=== PATIENT | male | born 1975 | race Caucasian/White ===

== ENCOUNTER 2024-04-13 17:54 | Emergency (ER) | payer SELFPAY ==
[2024-04-13 18:12] VITALS: BP 144/95; PULSE 66; RESP 16; TEMP 36.2; O2SAT 100
--- NOTE | 2024-04-13 18:15 | ED.EYEPROB ---
HPI - Eye Problem General Chief complaint: Eye Problems Stated complaint: LT Eye Pain Time Seen by Provider: 04/13/24 18:15 Source: patient, RN notes reviewed and old records reviewed Mode of arrival: ambulatory Limitations: no limitations History of Present Illness HPI Narrative: 49-year-old male presents to the [facility] with left eye discomfort, redness and swelling. Patient states that the symptoms started Tuesday, 5 days ago. Denies any trauma to the eye. No hyphema. Denies pain currently. Denies any blurry vision. States that he has had clear tearing with no purulent discharge. Patient is PERRLA Treatments Prior to Arrival: irrigated eye and OTC eye drops Related Data Home Medications Medication Instructions Recorded Confirmed citalopram 20 mg tablet 20 mg PO DAILY 04/13/24 04/13/24 Allergies Allergy/AdvReac Type Severity Reaction Status Date / Time No Known Allergies Allergy Verified 04/13/24 18:05 Review of Systems Review of Systems: All systems reviewed & are unremarkable except as noted in HPI and below Constitutional: Constitutional: Reports no additional constitutional complaints Eyes: Eyes: Reports as per HPI, Reports eye discharge (clear), Reports irritation, Denies loss of vision and Reports eye pain (Intermittent) ENT: Reports system reviewed and no additional complaints, except as documented Cardiovascular: Cardiovascular: Reports no additional cardiovascular complaints, Denies chest pain and Denies dyspnea Respiratory: Respiratory: Reports no additional respiratory complaints, Denies chest congestion, Denies cough and Denies dyspnea Gastrointestinal: Gastrointestinal: Reports no additional gastrointestinal complaints, Denies abdominal pain, Denies nausea and Denies vomiting Musculoskeletal: Musculoskeletal: Reports no additional musculoskeletal complaints Integumentary/Breasts: Skin/Breast: Reports system reviewed and no additional complaints, except as docu Neurologic: Reports system reviewed and no additional complaints, except as documented Psychiatric: Psychiatric: Reports no additional psychiatric complaints Allergic/Immunologic: Allergic/Immunologic: Reports no additional allergic/immunologic complaints COUNTS INCLUDE 234 BEDS AT THE [facility] Family History Family History Sibling Patient's brother is in good health Social History Social History Smoking status: Current every day smoker Alcohol intake: current Comments At the time of my signature, I reviewed and agree with the nursing past medical, surgical, social, and family history. There is no relevant family history pertinent to the patient complaint. Exam Const: General: cooperative, healthy appearing, comfortable, no acute distress, well developed, alert and well nourished Nutritional Appearance: well nourished Orientation/consciousness: patient oriented x3 Limitations: no limitations HENMT: Head: normal to inspection Ears: hearing grossly normal bilaterally and external ears normal Face/Nose/Sinus: Normal external nose present, normal facial exam and face symmetric Face and sinus: normal facial exam and face symmetric Eyes: General: appearance normal, both eyes and all related structures Alignment and Position: alignment normal Periorbital: periorbital findings normal Eyelids: eyelids normal Conjunctivae: conjunctival abnormality left conjunctival injection circumcorneal and subconjunctival hemorrhage; without discharge and without pallor Cornea: corneas normal and fluorescein used Neck: Neck: normal visual inspection, full ROM, no lymphadenopathy and no meningeal signs Chest: Chest palpation & inspection: normal inspection of the chest Resp: Effort & Inspection: normal respiratory effort and able to speak in complete sentences Auscultation: clear to auscultation bilaterally, no crackles, no rales, no rhonchi and no wheezes Cardio:
== END 2024-04-13 19:01 | disposition home or self-care (01) ==
PROVIDERS: Emergency Provider Nurse Practitioner
DX: H10.89 Other conjunctivitis (principal); F17.200 Nicotine dependence, unspecified, uncomplicated; Z79.899 Other long term (current) drug therapy
CPT/HCPCS: 99213; G0463

== ENCOUNTER 2025-05-17 16:11 | Emergency (ER) | payer SELFPAY ==
--- OUTSIDE RECORDS SUMMARY | 2018-08-29 07:26 | XMS_ITS | Continuity of Care Document ---
Author Organization [facility] Address [address] [place] [address] Phone Care Team Providers Care Data Lead Name Role Phone Mey PT, DPT, Aric Unavailable Unavail able Procedures Procedure Date Progress Note Therapeutic Exercise Therapeutic Activities Neuromuscular Re-Ed Manual Therapy Therapeutic Exercise Therapeutic Activities Neuromuscular Re-Ed Manual Therapy Therapeutic Exercise Therapeutic Activities Neuromuscular Re-Ed Manual Therapy Therapeutic Exercise Therapeutic Activities Neuromuscular Re-Ed Manual Therapy Therapeutic Exercise Therapeutic Activities Neuromuscular Re-Ed Manual Therapy Therapeutic Exercise Therapeutic Activities Neuromuscular Re-Ed Manual Therapy Therapeutic Exercise Therapeutic Activities Neuromuscular Re-Ed Manual Therapy PT Evaluation Low Complexity Therapeutic Exercise Therapeutic Activities Manual Therapy Advance Directives Directive Yes / No Effective Date File Name No Information Encounters Encounter Description Practice Location Reason(s) For Visit Diagnoses Date Provider Providers Copied on Encounter [facility], [facility] [address], [place], [place], [id number], [place] tel:[phone] [place] No Information Aug-0 9 Mey Aric. . [facility], [place], [place], [id number], [place] tel:[phone] [place] Concussion w LOC of 30 minutes or less, subsOther abnormalities of gait and mobilityUnspec ified abnormalities of gait and mobility 9 Mey Aric. . Referring Provider: Arvin Cabral, [address] [facility] [address] [facility], [place], [address]. tel:[phone] [facility] [address], [place], [place], [id number], [place] tel:[phone] [place] Concussion w LOC of 30 minutes or less, subsOther abnormalities of gait and mobilityUnspec ified abnormalities of gait and mobility 9 Mey Aric. . Referring Provider: Frances J[address] [facility] [address] [facility], [place], [address]. tel:[phone] [facility], [place], [place], [id number], [place] tel:[phone] [place] Concussion w LOC of 30 minutes or less, subsOther abnormalities of gait and mobilityUnspec ified abnormalities of gait and mobility 9 Mey Aric. . Referring Provider: Arvin Cabral [address] [facility] [address], [place], [address]. tel:[phone] [facility], [place], [place], [address], [place] tel:[phone] [place] Concussion w LOC of 30 minutes or less, subsOther abnormalities of gait and mobilityUnspec ified abnormalities of gait and mobility 9 Mey Aric. . Referring Provider: Frances [address] [facility] [address], [place], [address]. tel:[phone] [facility] [facility] [address], [id number], tel:[phone] [place] Concussion w LOC of 30 minutes or less, subsOther abnormalities of gait and mobilityUnspec ified abnormalities of gait and mobility 9 Mey Aric. . Referring Provider: Frances [address] [address], [place], [address]. tel:[phone], [id number], tel:[phone] [place] Concussion w LOC of 30 minutes or less, subsOther abnormalities of gait and mobilityUnspec ified abnormalities of gait and mobility 9 Mey Aric. . Referring Provider: Frances [address], [address]. tel:[phone], [id number], tel:[phone] [place] Concussion w LOC of 30 minutes or less, subsOther abnormalities of gait and mobilityUnspec ified abnormalities of gait and mobility 9 Mey Aric. . Referring Provider: Frances [address] [address], [place], [address]. tel:[phone], [id number], tel:[phone] [place] Concussion w LOC of 30 minutes or less, subsOther abnormalities of gait and mobilityUnspec ified abnormalities of gait and mobility 9 Mey Aric. . Referring Provider: Ruby Jaquez N [address], [facility]. tel:[phone] Family History Family Member Type Diagnosis Age At Onset No Information Payers Payer name Insurance type Covered alliance party ID Authoriza tion(s) [employer] [facility] [id number] Social History Type Description Quantity Date Captured Comments Sex Male Smoking Status No Information Chief Complaint And Reason For Visit No Information Reason For Referral Reason For Referral No Information History Of Present Illness Encounter Date Complaint History Of Prese nt Illness No Information Functional Status Date Functional Assessmen t No Information Instructions Date Instruction Additional Infor mation No Information Assessments Type Assessment Date No Information Patient Care Teams Name Effective Dates (start - stop) Status Members No Information
--- OUTSIDE RECORDS SUMMARY | 2024-08-09 09:20 | XMS_ITS ---
Author Organization [facility] Address [address] [place] [address] Care Team Providers Care Drawing Tracer Name Role Phone Glenis Monroe Primary Care Provider REASON FOR VISIT last appt was December 2023; needs 40 min Social History Sex Assigned At : Social History Observation Description Sex Assigned At Male Encounters Encounter Location Date Provider Diagnosis [address] [place] [address] 08/09/2024 Glenis Monroe Plan Of Treatment No Information Progress Notes * Samson CARTERDOB:1974 (50 yo M)Acc No.[id number]:08/09/2024 UNLOCKED PROGRESS NOTE Patient: Samson AYALA Provider: Baldev Monroe DNP, PMHNP-BC, PARK AIDE :1975 A ge:49 Y S ex:Male Date:08/09/2024 [address] [facility] Structured Data:Is there a n bobby you would prefer we call you? (Nombre que prefiere usar) : No Subjective: * Chief Complaints: * 1 . last appt was December 2023; needs 40 min. * Medical History: Objective: * Vitals: Assessment: Plan: * Treatment: * * Electronic signature of Kiki Monroe on 05/17/2025 at 05:21 PM ORTHOTIC PRACTITIONER Sign off status: Pending * Provider: Baldev Monroe DNP, RED-BC, PARK AIDE Date: 08/09/2024 Generated for Printing/Faxing/eTransmitting on: 1 07/17/2024 05:21 PM ORTHOTIC PRACTITIONER
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
[2025-05-17 16:13] VITALS: BP 163/130; PULSE 62; RESP 16; TEMP 36.4; O2SAT 97
--- OUTSIDE RECORDS SUMMARY | 2025-05-17 16:15 | XMS_ITS | Patient Health Record ---
Author Organization [facility] Address [address] [place] [address] Care Team Providers Care International Marketing Manager Name Role Phone Glenis Monroe Primary Care Provider Eileen Rincon [phone] Allergies No Known Allergies Reason For Referral No Information Medications Medication SIG (Take, Route, Frequency, Duration) Notes Start Date End Date Status Citalopram Hydrobromide 20 MG Take 1 tablet by mouth once daily Once a day; Duration: 90 days Active buPROPion HCl ER (XL) 150 MG 1 tablet in the morning Orally Once a day; Duration: 90 days 03/18/2025 Active traZODone HCl 50 MG 1 tablet at bedtime as needed Orally Once a day; Duration: 30 days Active Citalopram Hydrobromide 10 MG 1 tablet Orally Once a day; Duration: 30 days Not-Erwin chaves Social History Tobacco Use: Social History Observation Description Date Details (start date - stop date) Never Smoker NA - NA Sex Assigned At : Social History Observation Description Sex Assigned At Male Tobacco Control (Standard) Question Answer Notes Tobacco use: Nonsmoker Problems Problem Type SNOMED Code ICD Code Onset Dates Problem Status W/U Status Risk Notes Problem Generalized anxiety disorder (82235011) REBA (generalized anxiety disorder) (F41.1) Active confirmed Problem Bipolar 2 disorder (29132157) Bipolar 2 disorder (F31.81) Active confirmed Problem Overweight (941362813) Over weight (E66.3) Active confirmed Problem Poor concentration (finding) (56807155) Concentration deficit (R41.840) Active confirmed Vital Signs Heart Rate 88 /min 03/18/2025 Temperature 98 degrees Fahrenheit 03/18/2025 Respiratory Rate 18 /min 03/18/2025 Oximetry 98 % 03/18/2025 Blood pressure diastolic 74 mm Hg 03/18/2025 Height 5ft 8in in 03/18/2025 Blood pressure systolic 126 mm Hg 03/18/2025 Weight 204 lb 2 oz lbs 03/18/2025 BMI 31.03 kg/m2 03/18/2025 Encounters Encounter Location Date Provider Diagnosis [address] [place] [address] 08/08/2024 Eileen Rincon REBA (generalized anxiety disorder) F41.1 and Bipolar 2 disorder F31.[address] [place] [address] 03/18/2025 Eileen Rincon Over weight E66.3 ; REBA (generalized anxiety disorder) F41.1 ; Bipolar 2 disorder F31.81 and Concentration deficit R41.[address] [address] 02/06/2025 Glenis Monroe Assessments Encounter Date Diagnosis (ICD Code) Assessment Notes Treatment Notes Treatment Clinical Notes Section Notes 08/08/2024 REBA (generalized anxiety disorder) (ICD-10 - F41.1) 08/08/2024 Bipolar 2 disorder (ICD-10 - F31.81) 03/18/2025 Over weight (ICD-10 - E66.3) 03/18/2025 REBA (generalized anxiety disorder) (ICD-10 - F41.1) 03/18/2025 Bipolar 2 disorder (ICD-10 - F31.81) 03/18/2025 Concentration deficit (ICD-10 - R41.840) Plan Of Treatment No Information Medical (General) History Medical History History ICD Code HX HTN Surgical History Surgery Date(Month/Year) 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 Hospitalization History Reason Date(Month/Year) 2023
--- OUTSIDE RECORDS SUMMARY | 2025-05-17 16:15 | XMS_ITS | Clinical Summary ---
Author Organization [facility] Address [address] [place] [address] Care Team Providers Care Popcorn Machine Operator Name Role Phone None, Provider Primary Care Provider Unavaila ble Social History Tobacco Use Types Packs/Day Years Used Date Smoking Tobacco: Never Assessed Sex and Gender Information Value Date Recorded Sex Assigned at Not on file Legal Sex Male 4:23 PM CDT Gender Identity Not on file Sexual Orientation Not on file Plan of Treatment Health Maintenance Due Date Last Done Comments Colorectal Cancer Screening Colonoscopy (10 Years) 1977 Annual Physical 1980 Hepatitis C 1995 DTaP, Tdap and Td Vaccines ( 1 - Tdap) 1996 Hepatitis B Vaccines (1 of 3 - 19+ 3-dose series) 1996 COVID-19 Vaccine ( - 2024-2 6 season) 2025 Influenza Adult (#1) 2025 Hepatitis A Vaccines Aged Out No long er eligible based on patient's age to complete this topic Meningococcal B Vaccine Aged Out No l onger eligible based on patient's age to complete this topic Meningococcal Vaccine Aged Out No urmila ken eligible based on patient's age to complete this topic Pneumococcal Vaccine: Pediat rics (0 to 5 Years) and At-Risk Patients (6 to 49 Years) Aged Out No longer eligible b ased on patient's age to complete this topic RSV Immunizations Under 20 Months Aged Out No longer eligible based on patient's age to complete this topic Additional Health Concerns Infection Onset Date Last Indicated MRSA 07/17/2018 07/17/2018 Care Teams Popcorn Machine Operator Relationship Specialty Start Date End Date None, ProviderMD PCP - General 06/16/18
--- OUTSIDE RECORDS SUMMARY | 2025-05-17 16:15 | XMS_ITS | Data Portability ---
Author Organization [facility] Independent Space [facility], [facility] Address [address] [place] [address] Care Team Providers Care Lead Manufacturing Engineering Tech Name Role Phone VERONICA JORGE Suede Cleaner [phone] Assessment No assessment recorded. Plan of Treatment Reminders Order Date Submit Date Provider Last Modified By Organization Details Last Modified Time Details Appointments None recorded. Lab None recorded. Referral None recorded. Procedures None recorded. Surgeries None recorded. Imaging None recorded. Medication Orders amitriptyl ine 25 mg tablet 2018 019 [id number], [address], [place], [id number], 9 12:11:19 amitriptyl ine 25 mg tablet 2017 018 [facility] [address][id number], [address], [place], [id number], 8 12:51:23 Patient TargetsNo targets recorded. Patient Instructions Encounter Date Encounter Id Patient Instructions Last Modified By Organization Details Last Modified Time 06/13/2018 [id number] I reviewed the patient's records, evaluated the patient in a reasonable degree of medical certainty I do feel that his complaints are related to his reported work related injury. His symptoms at present are overall fairly mild but would benefit from some additional treatment at this time. After discussing with him I will go ahead and start him on amitriptyline 25 mg daily at bedtime which should help with reestablishing his sleep patterns and help with his headache pain. I also believe some of his headache pain continues to come from his eye's and I will have him work with outpatient physical therapy on the visual, balance, headaches. This should be done under the supervision of a physical therapist with experience in treating concussion. I anticipate rapid improvement and we will see him back in 4 weeks at which point I anticipate likely the patient being at [facility]. He can continue full work duties at this time. I did fill out a work status stating such. [email or web address] Not available 06/13/2018 14:13:39 Reason for Referral None Reported. Problems No Known Problems Medical Equipment None Reported. Allergies No known drug allergies Medications Name Sig Start Date Stop Date Status Note LastModified by Organization Details LastModified Time clindamycin HCl 300 mg capsule active Not Available Not Availab le Not Available amitriptyline 25 mg tablet TAKE 1 TABLET BY MOUTH EVERY DAY AT BEDTIME 2018 active Not Available Not Available Not Avai lable mupirocin 2 % topical ointment active Not Available Not Available Not Available ondansetron 4 mg disintegrating tablet active Not Available Not Available Not Available amoxicillin 875 mg-potassium clavulanate 125 mg tablet active Not Available Not Available No t Available Vitals Date Recorded Body height Body mass index (BMI) Body weight Heart rate Systolic And Diastolic Provider Name and Address Organization Details Last Updated DateTime 08/03/2018 182.88 cm 24.4 kg/m2 68791.63 g 71 /min 137/90 mm[Hg] [employer] 9 11:45:31 Date Recorded Body height Body mass index (BMI) Body weight Heart rate Systolic And Diastolic Provider Name and Address Organization Details Last Updated DateTime 06/13/2018 182.88 cm 24.4 kg/m2 32381.63 g 75 /min 119/78 mm[Hg] [employer] 8 12:28:55 Social History None recorded. Functional Status None recorded. Mental Status None recorded. Family History Nothing Reported. Medical History Condition Response HIV or AIDS N Coronary Artery Disease N Gout N Kidney Stones N Hyperthyroidism N Head Trauma/Injury Y Hernia N Hypothyroidism N Depression N COPD N Blood Clots N Lung Disease N Pacemaker N Anxiety Disorder N Arthritis N Cancer N Stroke N Neck Injury N Leg or Foot Ulcers N High Cholesterol N Liver Disease N Rheumatoid Arthritis N Headaches N Fibromyalgia N Kidney Disease N Heart Problems N Migraines N Thyroid Problems N Anemia N Multiple Sclerosis N Tendon Tear N Ulcers N Heart Attack ([place]) N Diabetes N Bleeding Disorder N Seizures/Epilepsy N Tuberculosis N Urinary Tract Infection N Back Problems N Diverticulitis N Asthma N Lupus N Peripheral Vascular Disease N Sleep Disorder N GERD/Reflux N Hepatitis N Aneurysm N Heart Disease N Pulmonary Embolism N Hypertension N Osteoporosis N Past Encounters Encounter ID Performer Location Encounter Start Date Encounter Closed Date Diagnosis/Indication Diagnosis SNOMED-CT Code Diagnosis ICD10 Code Diagnosis IMO Codes Diagnosis Note [id number] Anthony Cabral DO [facility] [address] [employer] [place] [address] 06/13/2018 11:57:31 06/21/2018 11:48:57 Headache 53198347 R51 Concussion with loss of consciousness 17920990 S06.0X9A Impairment of balance 38 8051641 R26.89 Visual disturbance 29572 001 H53.9 [id number] Anthony Cabral DO [facility] [address] [place] [address] 08/03/2018 11:30:29 10/04/2018 09:20:05 Headache 15025749 R51 Concussion with loss of consciousness 11235871 S06.0X9D We discussed his current symptoms and I do anticipate his headaches continuing to improve.I do not feel that the amitriptyl ine will be a long-term type of medication for him.He has completed his physical therapy.He continues to work full work duties.I do not anticipate additional treatment pending necessary but gradual return of function and improvemen ts.Based on this we will release him at [facility] to full work duties.I do not anticipate any long-term permanent partial disability .I did fill out a work status stating the above. Health Concerns Section Related Observation LastModified by Organization Detai ls LastModified Time None Recorded Concern Status LastModified by Organization Details LastModified Time None Recorded Advance Directives Directive None Recorded Payers Insurance Date Sequence Insurance Name Policy Number Policy Nathan Covered Member ID Nathan Member ID Guarantor Name 06/06/2018 [employer] Samson Carter Notes Date Note Type Note Provider Name and Address Organization Details Recorded Time 06/13/2018 text/html Patient is a 43-year-old male who is seen today for evaluation of his reported work related injury. He reports he was his usual state of health when on April 13, 2018 he hit the back of his head and the bottom fire extinguisher as he was leaning up. He denies any previous injury to his head in this area but states that when it hit the bottom of the fire extinguisher he believes he lost consciousness for about 30 seconds. He states that he has some amnesia of about half hour after due to the inconsistency of his memory at that time. Since that time his biggest complaint has continued headaches. He has been following with urgent care for this and so far his only treatments have been [id number] essentially. Gradually his symptoms have improved somewhat but he states still very frustrating to him as he feels that he is not better yet. He initially started back to work on light duty but is now working a full duty shift and states that he can get through the day but still has headaches that are in the crown of his head and over to the left side of his face. These are dull achy type headaches. They are not associated with any other symptomatology. He has been reporting subjective slowing of his memory and cognition but essentially he is able to do all of his activities of daily living fairly well. He does have also some difficulty with his eyes stating some photophobia and some worsening in his headaches and mild dizziness with eye movements. He has had difficulty with his sleep as well since this injury having very interrupted sleep only up to about 4-5 hours [place] [address] [place], [address], [employer], [facility] 06/13/2018 14:14:00 08/03/2018 text/html Patient is a 43 year old male who is known to me having been followed for his work-related injury.Since last time I have seen him he feels that the physical therapy has been quite helpful to him.He has been taking amitriptyline and this is also help with his headaches.He is sleeping well and his headaches are daily but much less severe and not really limiting him at this time.He has been tolerating full work duties much better.No other new problems [place] [address] [place], [address], [facility] [employer] [facility], [facility] 08/06/2018 13:13:02
--- OUTSIDE RECORDS SUMMARY | 2025-05-17 17:23 | XMS_ITS | Clinical Summary ---
Author Organization [facility] Address [address] [place] [address] Care Team Providers Care Data Virtualization Consultant Name Role Phone None, Provider Primary Care [...] Last Indicated MRSA 07/17/2018 07/17/2018 Care Teams Data Virtualization Consultant Relationship Specialty Start Date End Date None, ProviderMD PCP - General 06/16/18
[2025-05-17] MEDS: KETOROLAC (*BKC) 60 MG/2 ML VIAL IM (18:35)
[2025-05-17] MEDS: ACETAMINOPHEN 500 MG TABLET 1000 MG PO (18:35)
[2025-05-17] MEDS: CYCLOBENZAPRINE HCL 10 MG TABLET PO (18:35)
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
== END 2025-05-17 20:09 | disposition home or self-care (01) ==
DX: M54.2 Cervicalgia (principal); M54.9 Dorsalgia, unspecified; V44.5XXA Car driver injured in collision with heavy transport vehicle or bus in traffic accident, initial encounter; F17.200 Nicotine dependence, unspecified, uncomplicated
CPT/HCPCS: 70450; 72125; 72128; 96372; 99284; A9270; J1885